=== PATIENT | male | born 1940 | race Two or more races ===

== ENCOUNTER 2020-12-20 09:00 | Inpatient (IN) | payer OTHER ==
[~2020-12-20] VITALS: Ht 175.3 cm; Wt 79.4 kg
[2020-12-20] MEDS ORDERED: DITROPAN XL10 MG PO (11:29)
[2020-12-20] MEDS ORDERED: B-TREX (11:31)
[2020-12-28] MEDS ORDERED: MAXIMUM D3325 MCG (08:56)
[2020-12-28] MEDS ORDERED: DICLOFENAC POTA50 MG (08:56)
== END 2020-12-28 16:24 | DRG 470 ==
LOC: O/R 12-26 06:27 → SURH 12-26 09:00
PROVIDERS: ADMIT Orthopaedic Surgery; ATTEND Orthopaedic Surgery
PROC: 0SRD0J9 Replacement of Left Knee Joint with Synthetic Substitute, Cemented, Open Approach (ICD-10-PCS; principal; 2020-12-26 10:15)
DX: M17.12 Unilateral primary osteoarthritis, left knee (principal); M85.862 Other specified disorders of bone density and structure, left lower leg